=== PATIENT | male | born 1975 | race Hispanic/Latino ===

== ENCOUNTER 2018-07-09 14:27 | Inpatient (IN) | payer BC, OTHER, SELFPAY ==
[2018-07-09 14:57] LABS: Arterial Blood Carboxyhemoglob 0.9 % (0-1.5); Blood Gas Oxyhemoglobin 94.8 % (94-97); Blood O2 Saturation 96.5 % (92-98.5)
[2018-07-09] MEDS ORDERED: METHYLPREDNISOLONE 125 MG INJ ONE (15:01)
[2018-07-09] MEDS ORDERED: NA CHLORIDE 0.9% 1,000 ML ONE (15:01)
[2018-07-09 15:07] LABS: Protime INR 0.94
[2018-07-09 15:11] LABS: ALT/SGPT 25 U/L (12-78); AST/SGOT 15 U/L (15-37); Albumin 3.9 g/dL (3.4-5.0); Alkaline Phosphatase 96 U/L (45-117); BUN Blood Urea Nitrogen 36 mg/dL (7-18); Bicarbonate 27 mmol/L (21-32); Bilirubin Direct < 0.1 mg/dL (0-0.2); Bilirubin Total 0.2 mg/dL (0.2-1.0); Glucose Level 287 mg/dL (74-106); Magnesium 2.4 mg/dL (1.8-2.4); NT PRO-BNP 60 pg/mL (<125); Potassium 4.7 mmol/L (3.5-5.1); Protein, Total 8.7 g/dL (6.4-8.2); Sodium Level 137 mmol/L (136-145); Troponin (Emerg Dept Use Only) < 0.02 ng/mL (0.0-0.045)
--- NOTE | 2018-07-09 15:23 | RAD REPORT ---
EXAM DESCRIPTION: [place] Single View07/09/2018 3:02 pm CLINICAL HISTORY: phosgene exposure COMPARISON: none FINDINGS: The lungs appear clear of acute infiltrate. The heart is normal size IMPRESSION: No acute abnormalities displayed
[2018-07-09 15:57] LABS: Absolute Lymphocytes (CBC) 1.8 K/uL (0.7-4.9); Absolute Monocytes 0.6 K/uL (0.1-1.3); Absolute Neutrophil 5.4 K/uL (1.8-8.0); Basophils % 0.5 % (0-1.3); Hematocrit 30.1 % (39.6-49.0); Lymphocytes % 22.9 % (15.3-44.8); MCH 30.8 pg (27.0-35.0); MCV 86.9 fL (80-100); Monocytes % 7.2 % (3.3-12.3); RBC Red Blood Cell Count 3.46 M/uL (4.33-5.43)
--- NOTE | 2018-07-09 16:13 | EDPHYS ---
Physician Documentation [facility] Name: James Leggett Age: 43 yrs Sex: Male : 1975 Arrival Date: 07/09/2018 Time: 14:33 Bed 4 Private MD: Andrews Ro HPI: 07/09 16:09 This 43 yrs old Male presents to ER via EMS with complaints of Chemical jocelyne Exposure, phosgene. 16:09 exposure, brief with phosgene. Onset: The symptoms/episode began/occurred just prior to jocelyne arrival. Severity of symptoms: At their worst the symptoms were very mild in the emergency department the symptoms are unchanged. The patient has not experienced similar symptoms in the past. Historical: - Allergies: 14:36 No Known Allergies; hb - PMHx: 14:36 Hypertension; Diabetes - NIDDM; hb 18:36 chronic kidney disease; sv - PSHx: 14:36 None; hb - Immunization history:: Adult Immunizations up to date. - Social history:: Smoking status: Patient/guardian denies using tobacco. - Ebola Screening: : No symptoms or risks identified at this time. - Family history:: not pertinent. ROS: 16:09 Constitutional: Negative for fever, chills, and weight loss, Eyes: Negative for injury, jocelyne pain, redness, and discharge, ENT: Negative for injury, pain, and discharge, Neck: Negative for injury, pain, and swelling, Cardiovascular: Negative for chest pain, palpitations, and edema, Respiratory: Negative for shortness of breath, cough, wheezing, and pleuritic chest pain, Abdomen/GI: Negative for abdominal pain, nausea, vomiting, diarrhea, and constipation, Back: Negative for injury and pain, : Negative for injury, bleeding, discharge, and swelling, MS/Extremity: Negative for injury and deformity, Skin: Negative for injury, rash, and discoloration, Neuro: Negative for headache, weakness, numbness, tingling, and seizure, Psych: Negative for depression, anxiety, suicide ideation, homicidal ideation, and hallucinations, Allergy/Immunology: Negative for hives, rash, and allergies, Endocrine: Negative for neck swelling, polydipsia, polyuria, polyphagia, and marked weight changes, Hematologic/Lymphatic: Negative for swollen nodes, abnormal bleeding, and unusual bruising. Exam: 16:09 Constitutional: This is a well developed, well nourished patient who is awake, alert, jocelyne and in no acute distress. Head/Face: Normocephalic, atraumatic. Eyes: Pupils equal round and reactive to light, extra-ocular motions intact. Lids and lashes normal. Conjunctiva and sclera are non-icteric and not injected. Cornea within normal limits. Periorbital areas with no swelling, redness, or edema. ENT: Nares patent. No nasal discharge, no septal abnormalities noted. Tympanic membranes are normal and external auditory canals are clear. Oropharynx with no redness, swelling, or masses, exudates, or evidence of obstruction, uvula midline. Mucous membranes moist. Neck: Trachea midline, no thyromegaly or masses palpated, and no cervical lymphadenopathy. Supple, full range of motion without nuchal rigidity, or vertebral point tenderness. No Meningismus. Chest/axilla: Normal chest wall appearance and motion. Nontender with no deformity. No lesions are appreciated. Cardiovascular: Regular rate and rhythm with a normal S1 and S2. No gallops, murmurs, or rubs. Normal PMI, no JVD. No pulse deficits. Respiratory: Lungs have equal breath sounds bilaterally, clear to auscultation and percussion. No rales, rhonchi or wheezes noted. No increased work of breathing, no retractions or nasal flaring. Abdomen/GI: Soft, non-tender, with normal bowel sounds. No distension or tympany. No guarding or rebound. No evidence of tenderness throughout. Back: No spinal tenderness. No costovertebral tenderness. Full range of motion. Male : Normal genitalia with no discharge or lesions. Skin: Warm, dry with normal turgor. Normal color with no rashes, no lesions, and no evidence of cellulitis. MS/ Extremity: Pulses equal, no cyanosis. Neurovascular intact. Full, normal range of motion. Neuro: Awake and alert, GCS 15, oriented to person, place, time, and situation. Cranial nerves II-XII grossly intact. Motor strength 5/5 in all extremities. Sensory grossly intact. Cerebellar exam normal. Normal gait. Psych: Awake, alert, with orientation to person, place and time. Behavior, mood, and affect are within normal limits. 16:10 Musculoskeletal/extremity: DVT Exam: No signs of deep vein thrombosis. no pain, no jocelyne swelling, no tenderness, negative Homans' sign noted on exam, no appreciated bluish discoloration, no erythema, no increased warmth. Vital Signs: 14:35 BP 147 / 100; Pulse 113; Resp 20; Pulse Ox 100% on R/A; Pain 0/10; hb 15:00 Weight 61.23 kg; hb 15:23 BP 137 / 109; Pulse 97; Resp 14; Pulse Ox 100% on 21% BiPAP; hb 15:34 BP 150 / 97; Pulse 93; Resp 20; Pulse Ox 100% on BiPAP; jb1 16:35 BP 155 / 99; Pulse 100; Resp 19; Pulse Ox 99% on R/A; sv 18:08 BP 155 / 96; Pulse 104; Resp 18; Pulse Ox 99% on R/A; sv 18:33 BP 142 / 102; Pulse 109; Resp 19; Pulse Ox 100% on R/A; sv 19:30 BP 158 / 99; Pulse 113; Resp 17; Pulse Ox 100% on R/A; Pain 0/10; tl2 MDM: 14:38 Patient medically screened. [facility] 16:10 Data reviewed: vital signs, nurses notes, lab test result(s), EKG, radiologic studies, [facility] CT scan, plain films. 07/09 14:35 Order name: Basic Metabolic Panel; Complete Time: 16:08 hb 07/09 14:35 Order name: CBC with Diff; Complete Time: 16:08 07/09 14:35 Order name: LFT's; Complete Time: 16:08 07/09 14:35 Order name: Magnesium; Complete Time: 16:08 07/09 14:35 Order name: NT PRO-BNP; Complete Time: 16:08 07/09 14:35 Order name: PT-INR; Complete Time: 16:08 07/09 14:35 Order name: Troponin (emerg Dept Use Only); Complete Time: 16:08 07/09 14:35 Order name: XRAY Chest (1 view); Complete Time: 16:08 hb 07/09 14:35 Order name: EKG; Complete Time: 14:35 07/09 14:39 Order name: ABG; Complete Time: 16:08 [facility] 07/09 14:39 Order name: BIPAP [facility] 07/09 17:27 Order name: CONS Physician Consult EDCO 07/09 14:35 Order name: Cardiac monitoring; Complete Time: 14:52 hb 07/09 14:35 Order name: EKG - Nurse/Tech; Complete Time: 14:52 hb 07/09 14:35 Order name: IV Saline Lock; Complete Time: 14:52 hb 07/09 14:35 Order name: Labs collected and sent; Complete Time: 14:52 hb 07/09 14:35 Order name: O2 Per Protocol; Complete Time: 14:52 hb 07/09 14:35 Order name: O2 Sat Monitoring; Complete Time: 14:52 hb 07/09 15:22 Order name: Labs - recollect needed; Complete Time: 17:16 bd Administered Medications: 14:55 Drug: SOLU-Medrol 125 mg Route: IVP; Site: right antecubital; hb 17:16 Follow up: Response: No adverse reaction la1 14:55 Drug: NS 0.9% 1000 ml Route: IV; Rate: 125 ml/hr; Site: right antecubital; hb 19:40 Follow up: IV Status: Infusion continued upon admission bb Disposition: 07/09/18 17:24 Hospitalization ordered by Angela Flanagan for Observation. Preliminary diagnosis are Contact with and (suspected ) exposure to other hazardous substances - phosgene, Type 2 diabetes mellitus, Essential (primary) hypertension. - Bed requested for Intensive Care Unit. - Status is Observation. bb - Condition is Stable. - Problem is new. - Symptoms have improved. UTI on Admission? No Signatures: Dispatcher [employer] EDCO Keely Ashley Stephanie, RN RN sv Woody, Diana, RN RN dw Anderson, Corey, MD MD cha Ballard, Brenda, RN RN bb Baxter, Heather, RN RN hb Attema, Lee RN la1 Corrections: (The following items were deleted from the chart) 16:13 16:12 07/09/2018 16:12 Transfer ordered to [facility]. jocelyne Diagnosis is Essential (primary) hypertension; Unspecified kidney failure. Reason for transfer: Higher level of care. Accepting physician is to [place]. Condition is Stable. Problem is new. Symptoms have improved. jocelyne 17:23 16:13 07/09/2018 16:12 Transfer ordered to [facility]. jocelyne Diagnosis is Essential (primary) hypertension; Unspecified kidney failure; Contact with and (suspected ) exposure to other hazardous substances - phosgene. Reason for transfer: Higher level of care. Accepting physician is to [place]. Condition is Stable. Problem is new. Symptoms have improved. jocelyne 19:22 17:24 Hospitalization Ordered by Angela Flanagan MD for Observation. Preliminary diagnosis dw is Contact with and (suspected ) exposure to other hazardous substances - phosgene; Type 2 diabetes mellitus; Essential (primary) hypertension. Bed requested for Telemetry/MedSurg (observation). Status is Observation. Condition is Stable. Problem is new. Symptoms have improved. UTI on Admission? No. jocelyne 19:46 19:22 07/09/2018 17:24 Hospitalization Ordered by Angela Flanagan MD for Observation. bb Preliminary diagnosis is Contact with and (suspected ) exposure to other hazardous substances - phosgene; Type 2 diabetes mellitus; Essential (primary) hypertension. Bed requested for Intensive Care Unit. Status is Observation. Condition is Stable. Problem is new. Symptoms have improved. UTI on Admission? No. dw
--- NOTE | 2018-07-09 16:13 | ER ---
Nurse's Notes [facility] Name: James Leggett Age: 43 yrs Sex: Male : 1975 Arrival Date: 07/09/2018 Time: 14:33 Bed 4 Private MD: Diagnosis: Contact with and (suspected ) exposure to other hazardous substances-phosgene;Type 2 diabetes mellitus;Essential (primary) hypertension Presentation: 07/09 14:37 Presenting complaint: EMS states: Pt was exposed to phosgene, approximately 100 ppm in hb gas form, pt was wearing SCB put pulled before entering decon shower. Pt was right next to the pipe when he was exposed. Pt denies SOB/CP/itching/burning/N/V. Pt in no respiratory distress. Transition of care: patient was not received from another setting of care. Onset of symptoms was July 09, 2018. Risk Assessment: Do you want to hurt yourself or someone else? Patient reports no desire to harm self or others. Initial Sepsis Screen: Does the patient meet any 2 criteria? No. Patient's initial sepsis screen is negative. Does the patient have a suspected source of infection? No. Patient's initial sepsis screen is negative. 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 14:37 Acuity: GISSEL 2 hb 14:37 Method Of Arrival: EMS: [facility] hb Historical: - Allergies: 14:36 No Known Allergies; hb - PMHx: 14:36 Hypertension; Diabetes - NIDDM; hb 18:36 chronic kidney disease; sv - PSHx: 14:36 None; hb - Immunization history:: Adult Immunizations up to date. - Social history:: Smoking status: Patient/guardian denies using tobacco. - Ebola Screening: : No symptoms or risks identified at this time. - Family history:: not pertinent. Screenin:36 Abuse screen: Denies threats or abuse. Denies injuries from another. Nutritional hb screening: No deficits noted. Tuberculosis screening: No symptoms or risk factors identified. Fall Risk None identified. Assessment: 14:40 General: Appears in no apparent distress. Behavior is calm, cooperative. Pain: Denies hb pain. Neuro: Level of Consciousness is awake, alert, obeys commands, Oriented to person, place, time, situation. Cardiovascular: Heart tones S1 S2 present Capillary refill < 3 seconds Patient's skin is warm and dry. Respiratory: Airway is patent Trachea midline Respiratory effort is even, unlabored, Respiratory pattern is regular, symmetrical, Breath sounds are clear bilaterally. GI: No signs and/or symptoms were reported involving the gastrointestinal system. : No signs and/or symptoms were reported regarding the genitourinary system. EENT: No signs and/or symptoms were reported regarding the EENT system. Derm: No signs and/or symptoms reported regarding the dermatologic system. Skin is intact, is healthy with good turgor, Skin is pink, warm \T\ dry. Musculoskeletal: No signs and/or symptoms reported regarding the musculoskeletal system. 14:42 Reassessment: RT at bedside for ABG. hb 14:56 Reassessment: Pt placed on BIPAP 10/5, R12, 21% FIO2. hb 15:15 Reassessment: NAD, VSS, pt on BIPAP, denies SOB/pain/itching/burning/N/V. Call light hb within reach. 15:39 Reassessment: Dr. Rudd with Poison Control recommends conservative treatment: hb ausc, pulse ox, poss CXR, symptom management, 24hr obs with pulse ox. 18:11 Reassessment: Patient appears in no apparent distress at this time. No changes from sv previously documented assessment. Patient and/or family updated on plan of care and expected duration. Pain level reassessed. Patient is alert, oriented x 3, equal unlabored respirations, skin warm/dry/pink. 19:38 Reassessment: Patient and/or family updated on plan of care and expected duration. Pain bb level reassessed. Patient is alert, oriented x 3, equal unlabored respirations, skin warm/dry/pink. report called to Kristy FULLER for ICU overflow bed 3. Vital Signs: 14:35 BP 147 / 100; Pulse 113; Resp 20; Pulse Ox 100% on R/A; Pain 0/10; hb 15:00 Weight 61.23 kg; hb 15:23 BP 137 / 109; Pulse 97; Resp 14; Pulse Ox 100% on 21% BiPAP; hb 15:34 BP 150 / 97; Pulse 93; Resp 20; Pulse Ox 100% on BiPAP; jb1 16:35 BP 155 / 99; Pulse 100; Resp 19; Pulse Ox 99% on R/A; sv 18:08 BP 155 / 96; Pulse 104; Resp 18; Pulse Ox 99% on R/A; sv 18:33 BP 142 / 102; Pulse 109; Resp 19; Pulse Ox 100% on R/A; sv 19:30 BP 158 / 99; Pulse 113; Resp 17; Pulse Ox 100% on R/A; Pain 0/10; tl2 ED Course: 14:33 Patient arrived in ED. hb 14:35 Arm band placed on right wrist. hb 14:36 Patient has correct armband on for positive identification. Placed in gown. Bed in low hb position. Call light in reach. Side rails up X 1. monitoring coordinator on. Pulse ox on. NIBP on. 14:36 Inserted saline lock: 18 gauge in right antecubital area, using aseptic technique. hb Blood collected. 14:38 Andrews Carrillo MD is Attending Physician. jocelyne 14:38 Triage completed. hb 14:41 EKG done, by technician anatomic pathology. reviewed by Andrews Carrillo MD. at1 14:56 X-ray completed. Portable x-ray completed in exam room. Patient tolerated procedure jb2 well. 14:59 BIPAP Sent. la1 15:03 XRAY Chest (1 view) In Process Unspecified. EDMS 17:23 Angela Flanagan MD is Hospitalizing Provider. jocelyne 18:03 Jaycee Montgomery, RN is Primary Nurse. sv 19:07 Report given to Donna FULLER and Pura FULLER. sv 19:08 Primary Nurse role handed off by Jaycee Montgomery RN sv 19:39 No provider procedures requiring assistance completed. Patient admitted, IV remains in bb place. Administered Medications: 14:55 Drug: SOLU-Medrol 125 mg Route: IVP; Site: right antecubital; hb 17:16 Follow up: Response: No adverse reaction la1 14:55 Drug: NS 0.9% 1000 ml Route: IV; Rate: 125 ml/hr; Site: right antecubital; hb 19:40 Follow up: IV Status: Infusion continued upon admission bb Outcome: 16:12 ER care complete, transfer ordered by . jocelyne 17:24 Decision to Hospitalize by Provider. jocelyne 19:39 Admitted to ICU accompanied by tech, via wheelchair, room 3 (overflow), with chart, bb Report called to Kristy FULLER 19:39 Condition: stable 19:46 Patient left the ED. bb Signatures: Dispatcher [employer] EDMS [place] jb1 Jaycee Montgomery, RN Andrews Castillo MD MD cha Buechter, Jesse jb2 Pura Brooks RN RN bb Gonzales, Amanda, geophysical party chief EKG Tat1 Lex Staton RN RN la1 Corie Adrian RN RN Donna Yadav RN RN tl2 Corrections: (The following items were deleted from the chart) 14:49 14:37 Presenting complaint: EMS states: Pt was exposed to phosgene, approximately hb 400ppm in gas form, pt was wearing SCB put pulled before entering shower. Pt was right next to the pipe when he was exposed. Pt denies SOB/CP/itching/burning/N/V. P t in no respiratory distress. hb 14:49 14:37 Care prior to arrival: hb hb 15:33 15:23 BP 137 / 109; Pulse 97bpm; Resp 14bpm; Pulse Ox 100% BiPAP; hb hb 15:34 14:56 Reassessment: Pt placed on BIPAP 10/5, R12, RA hb hb
--- NOTE | 2018-07-09 19:15 | P.HP ---
Certification for Inpatient Patient admitted to: Observation With expected LOS: <2 Midnights Practitioner: I am a practitioner with admitting privileges, knowledge of patient current condition, hospital course, and medical plan of care. 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 Per patient , still wearing masks and had limited exposure to the gas. On the way also to the hospital, he was placed on BiPAP and has not suffered any complications so far. He is to be admitted for observation for any delayed pulmonary edema or symptoms from the phosgene exposure. At the time of my exam, he was alert and oriented x3 and was in no acute distress Allergies No Known Allergies Allergy (Verified 07/09/18 18:30) - Past Medical/Surgical History Diabetic: Yes -: Diabetes -: Hypertension -: CKD Review of Systems General: Unremarkable Eyes: Unremarkable ENT: Unremarkable Respiratory: Unremarkable Cardiovascular: Unremarkable Gastrointestinal: Unremarkable Genitourinary: Unremarkable Musculoskeletal: Unremarkable Integumentary: Unremarkable Neurological: Unremarkable Lymphatics: Unremarkable Physical Examination - Physical Exam General: Alert, In no apparent distress HEENT: Atraumatic, PERRLA, Mucous membr. moist/pink, EOMI, Sclerae nonicteric Neck: Supple, 2+ carotid pulse no bruit, No LAD, Without JVD or thyroid abnormality Respiratory: Clear to auscultation bilaterally, Normal air movement Cardiovascular: Regular rate/rhythm, Normal S1 S2 Gastrointestinal: Normal bowel sounds, No tenderness Musculoskeletal: No tenderness Integumentary: No rashes Neurological: Normal gait, Normal speech, Normal strength at 5/5 x4 extr, Normal tone, Normal affect Lymphatics: No axilla or inguinal lymphadenopathy - Studies Laboratory Data (last 24 hrs) 07/09/18 15:40: WBC 8.0, Hgb 10.7 L, Hct 30.1 L, Plt Count 294 07/09/18 14:32: PT 11.1, INR 0.94 07/09/18 14:32: Sodium 137, Potassium 4.7, BUN 36 H, Creatinine 2.20 H, Glucose 287 H, Magnesium 2.4, Total Bilirubin 0.2, AST 15, ALT 25, Alkaline Phosphatase 96 Assessment and Plan - Problems (Diagnosis) (1) Chemical exposure Current Visit: Yes Status: Acute Plan: Admitted for observation with tele. Monitor for any delayed pulmonary symptoms BiPAP if needed Pulmonary consulted. (2) Diabetes mellitus type 2 in obese Current Visit: Yes Status: Acute Plan: Accu-Cheks a.c. HS. Mild sliding scale insulin. (3) Hypertension Current Visit: Yes Status: Acute Plan: Stable. Restart home medications. (4) CKD (chronic kidney disease) Current Visit: Yes Status: Acute Plan: Unknown baseline. The patient has been following with primary care regarding kidney disease. Will trend tomorrow and monitor. Discharge Plan: Home Plan to discharge in: 24 Hours - Advance Directives Does patient have a Living Will: No Does patient have a Durable POA for Healthcare: No
[2018-07-09] MEDS ORDERED: ACETAMINOPHEN 500 MG TAB PO PRN (19:29)
[2018-07-09] MEDS ORDERED: ONDANSETRON 4 MG/2 ML VIAL IV PRN (19:29)
[2018-07-09] MEDS: INSULIN -REGULAR HUMAN 50 UNIT/0.5 ML ML SQ SCH (20:08)
[2018-07-10 04:56] LABS: Absolute Lymphocytes (CBC) 1.1 K/uL (0.7-4.9); Absolute Monocytes 0.6 K/uL (0.1-1.3); Absolute Neutrophil 11.8 K/uL (1.8-8.0); Basophils % 0.1 % (0-1.3); Hematocrit 33.1 % (39.6-49.0); Lymphocytes % 8.2 % (15.3-44.8); MCH 29.8 pg (27.0-35.0); MCV 87.3 fL (80-100); MPV 7.2 fL (7.6-11.3); Monocytes % 4.6 % (3.3-12.3); RBC Red Blood Cell Count 3.79 M/uL (4.33-5.43)
[2018-07-10 05:17] LABS: Albumin 3.2 g/dL (3.4-5.0); Bilirubin Total 0.2 mg/dL (0.2-1.0); Phosphorus 3.2 mg/dL (2.5-4.9); Potassium 4.7 mmol/L (3.5-5.1); Protein, Total 7.5 g/dL (6.4-8.2)
[2018-07-10 05:22] LABS: Blood Morphology Comment NOT SEEN (NOT SEEN); Platelet Estimate ADEQ; Urine White Blood Cell Casts OK
[2018-07-10] MEDS: INSULIN -REGULAR HUMAN 50 UNIT/0.5 ML ML SQ SCH ×2 (07:30→12:05)
--- NOTE | 2018-07-10 07:53 | EKG ---
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
[2018-07-10] MEDS ORDERED: ENOXAPARIN 40 MG/0.4 ML SQ SCH (09:00)
--- NOTE | 2018-07-10 17:44 | P.SSS ---
Patient History Date of Service: 07/10/18 Primary Care Provider: None Reason for admission: Gas Exposure History of Present Illness: This is a 53-year-old male with a past medical history of diabetes, hypertension , CKD admitted for exposure to phosgene gas at the [employer]. Allergies No Known Allergies Allergy (Verified 07/09/18 18:30) Home Medications: Atorvastatin Calcium [Lipitor] 40 mg PO BEDTIME 07/09/18 Insulin Glargine,Hum.rec.anlog [Toujeo Solostar] 12 unit SQ BEDTIME 07/09/18 Nifedipine [Nifedipine ER] 90 mg PO DAILY 07/09/18 Semaglutide [Ozempic] 2 mg SQ EVERY 7TH DAY 07/09/18 traMADol HCL [Ultram*] 50 mg PO DAILY PRN 07/09/18 Methylprednisolone [Medrol dosepack] 4 mg PO DIRECTED #1 diogenes 07/10/18 - Past Medical/Surgical History Has patient received pneumonia vaccine in the past: No Diabetic: Yes -: Diabetes -: Hypertension -: CKD - Family History Mother -: Diabetes Father -: Diabetes Brother -: Diabetes - Social History Smoking Status: Never smoker Alcohol use: No CD- Drugs: No Caffeine use: No Place of Residence: Home Review of Systems 10-point ROS is otherwise unremarkable Physical Examination - Vital Signs Temperature: 98 F Blood Pressure: 156/99 Pulse: 103 Respirations: 23 Pulse Ox (%): 100 - Physical Exam General: Alert, In no apparent distress HEENT: Atraumatic, PERRLA, Mucous membr. moist/pink, EOMI, Sclerae nonicteric Neck: Supple, 2+ carotid pulse no bruit, No LAD, Without JVD or thyroid abnormality Respiratory: Clear to auscultation bilaterally, Normal air movement Cardiovascular: Regular rate/rhythm, Normal S1 S2 Gastrointestinal: Normal bowel sounds, No tenderness Musculoskeletal: No tenderness Integumentary: No rashes Neurological: Normal gait, Normal speech, Normal strength at 5/5 x4 extr, Normal tone, Normal affect Lymphatics: No axilla or inguinal lymphadenopathy - Studies Laboratory Data (last 24 hrs) 07/10/18 04:24: Sodium 143, Potassium 4.7, BUN 35 H, Creatinine 1.80 H, Glucose 220 H, Phosphorus 3.2, Total Bilirubin 0.2, AST 9 L, ALT 18, Alkaline Phosphatase 75 10/17/18 04:24: WBC 13.5 H D, Hgb 11.3 L, Hct 33.1 L, Plt Count 326 07/09/18 15:40: WBC 8.0, Hgb 10.7 L, Hct 30.1 L, Plt Count 294 07/09/18 14:32: PT 11.1, INR 0.94 07/09/18 14:32: Sodium 137, Potassium 4.7, BUN 36 H, Creatinine 2.20 H, Glucose 287 H, Magnesium 2.4, Total Bilirubin 0.2, AST 15, ALT 25, Alkaline Phosphatase 96 - Diagnosis (Problem(s)) (1) Chemical exposure Onset Date: 07/10/18 Current Visit: Yes Status: Acute (2) Diabetes mellitus type 2 in obese Onset Date: 07/10/18 Current Visit: Yes Status: Chronic (3) Hypertension Onset Date: 07/10/18 Current Visit: Yes Status: Chronic Qualifiers: Hypertension type: essential hypertension Qualified Code(s): I10 - Essential (primary) hypertension (4) CKD (chronic kidney disease) Onset Date: 07/10/18 Current Visit: Yes Status: Chronic Qualifiers: Chronic kidney disease stage: stage 2 (mild) Qualified Code(s): N18.2 - Chronic kidney disease, stage 2 (mild) Treatment Summary: Overall during the hospital stay patient remained stable. Patient initially admitted to the hospital after he was exposed to Phosgene gas at the chemical plant. Patient was admitted for 24 of observation to ensure that no pulmonary edema has resulted from the initial exposure to the gas. Patient remained stable while here in the hospital. His respiratory status remained stable as well. Chest x-ray was clear of any pulmonary edema or any other complications from the chemical exposure. patient was then discharged home under stable condition. posion control and toxicology was consulted. Agreed with plan to discharge home. - Disposition Disposition: ROUTINE DISCHARGE Condition: GOOD Patient Discharge Instructions: Please f.u with Your security control room officer at [place] today and rosibel after discharge. New medication Medrol Dose Pack Diet: Regular Activity: Ad katty
[2018-07-11] MEDS ORDERED: NIFEDIPINE XL 90 MG TABLET PO SCH (09:00)
== END 2018-07-10 14:40 | disposition home or self-care (01) | DRG 923 ==
LOC: ER 14:27 → ERHOLD 17:25 → 3RD-ICU 19:34 → OBSVTOIN 07-10 10:59
PROVIDERS: ADMIT Family Medicine; ATTEND Family Medicine
PROC: 5A09357 Assistance with Respiratory Ventilation, Less than 24 Consecutive Hours, Continuous Positive Airway Pressure (ICD-10-PCS; principal; 2018-07-10)
DX: Z04.2 Encounter for examination and observation following work accident (principal); Z57.5 Occupational exposure to toxic agents in other industries; I12.9 Hypertensive chronic kidney disease with stage 1 through stage 4 chronic kidney disease, or unspecified chronic kidney disease; E11.22 Type 2 diabetes mellitus with diabetic chronic kidney disease; N18.2 Chronic kidney disease, stage 2 (mild); Z79.4 Long term (current) use of insulin
CPT/HCPCS: 36415; 71045; 80048; 80053; 80076; 82805; 82962; 83735; 83880; 84100; 84484; 85025; 85610; 93005; 94660; 96361; 96374; 99285; J1650; J2930; J7030